=== PATIENT | female | born 1995 ===

== ENCOUNTER 2022-12-25 11:09 | Emergency (ER) | payer OTHER ==
[~2022-12-25] VITALS: Ht 152.4 cm; Wt 90.7 kg
[2022-12-25] MEDS ORDERED: NORFLEX100MG PO (11:50)
[2022-12-25] MEDS ORDERED: METRONIDAZOLE500 MG PO (16:05)
[2022-12-25] MEDS ORDERED: CIPRO500 MG PO (16:05)
[2022-12-25] MEDS ORDERED: PEPCID AC20 MG PO (16:05)
== END 2022-12-25 17:18 | disposition home or self-care (01) ==
LOC: ER 11:09
DX: R10.13 Epigastric pain (principal); R10.9 Unspecified abdominal pain; R11.10 Vomiting, unspecified; A08.8 Other specified intestinal infections